=== PATIENT | female | born 1985 | race Caucasian/White ===

== ENCOUNTER 2022-08-15 11:49 | Emergency (ER) | payer BC, SELFPAY ==
[2022-08-15 12:05] VITALS: BP 124/82; PULSE 74; RESP 18; TEMP 36.6; O2SAT 98; BMI 24.4
--- NOTE | 2022-08-15 12:18 | ED_ITS ---
[facility] - General Adult General Time Seen by Provider: 12:18 Date Seen: 08/15/22 Chief complaint: Difficulty Swallowing Stated complaint: something stuck in throat Time Seen by Provider: 08/15/22 11:50 Source: patient Mode of arrival: ambulatory Limitations: no limitations History of Present Illness HPI narrative: Patient is a pleasant 37 year white female who feels some things ?irritated in her throat, with a feeling of saliva stuck around her throat. She is able to swallow her own saliva, able to swallow it has been going on for a couple of months she went to Urgent Care and they were not able to help her. She is does not recall eating anything that stuck in her throat, reports that she is very healthy. Does take venlafaxine and trazodone. These have been stable medications. No fevers, chills, COVID symptoms, leg swelling or edema. Related Data Home Medications Medication Instructions Recorded Confirmed trazodone 100 mg tablet 200 mg PO .hs 08/08/22 08/15/22 Previous Rx's Medication Instructions Recorded venlafaxine 150 mg See Rx Instructions .Route 06/28/22 capsule,extended release 24 hr .COMPLEX #90 caps Allergies Allergy/AdvReac Type Severity Reaction Status Date / Time No Known Drug Allergies Allergy Verified 08/15/22 13:33 Review of Systems Narrative: Negative other than reported in the [facility] Social History Smoking Status: Smoker, status unknown Do you use any of these nicotine containing products: None Second hand tobacco smoke exposure: No How often do you have a drink containing alcohol: 2-4 times a month How many standard drinks containing alcohol do you have on a typical day: 1 or 2 How often do you have six or more drinks on one occasion: Monthly AUDIT-C Alcohol total score: 4 Non-prescribed substance use: denies use Little interest or pleasure in doing things: several days Feeling down, depressed, or hopeless: several days service: No Exam Narrative: Exam Narrative: Objective O2 sat is 90% on room air HEENT is unremarkable, throat is clear, neck supple Const: Vital Signs, click to edit/add: Vital Signs - 24 hr 08/15/22 12:05 Temperature 98 F Pulse Rate [Pulse Oximeter] 74 Respiratory Rate 18 Blood Pressure [Ri ght Upper Arm] 124/82 Pulse Oximetry 98 Oxygen Delivery Me thod Room Air Course Vital Signs Vital signs: Initial Vital Signs Temperature 98 F 08/15/22 12:05 Temperature Source Temporal Artery Scan 08/15/22 12:05 Pulse Rate 74 08/15/22 12:05 Pulse Rhythm 08/15/22 12:05 Respiratory Rate 18 08/15/22 12:05 Blood Pressure 124/82 08/15/22 12:05 Blood Pressure Mean 96 08/15/22 12:05 Blood Pressure Position Supine 08/15/22 12:05 Pulse Oximetry 98 08/15/22 12:05 Oxygen Delivery Method 08/15/22 12:05 Vital Signs Temperature 98 F 08/15/22 12:05 Pulse Rate 74 08/15/22 12:05 Respiratory Rate 18 08/15/22 12:05 Blood Pressure 124/82 08/15/22 12:05 Pulse Oximetry 98 08/15/22 12:05 Oxygen Delivery Method 08/15/22 12:05 Temperature 98 F 08/15/22 12:05 Pulse Rate 74 08/15/22 12:05 Respiratory Rate 18 08/15/22 12:05 Blood Pressure 124/82 08/15/22 12:05 Pulse Oximetry 98 08/15/22 12:05 Oxygen Delivery Method 08/15/22 12:05 Medical Decision Making MDM Narrative Medical decision making narrative: Patient has a several month history of saliva or postnasal drainage occurring and feeling like she is getting something caught in her throat. She is able to swallow now. Does appear to have an obstruction. Has no shortness of breath. I recommend an ENT scope evaluation, will try and set this up with Dr. Vance Garcia in as soon as possible. Addendum: Dr. looney kindly will see the patient this afternoon at 1:30 a.m. in like the clinic. I think she is stable to be discharged given her symptoms been present for a couple of months. Discharge Plan Discharge Clinical Impression: Throat irritation Patient Disposition: Home, Self-Care Condition: Stable Additional Instructions: ENT consult recommended, really need to look at the throat with a telescope. No obvious findings on clinical exam today. Soft light diet until ENT consult. ENT consult today in [facility] at 1:[address] Vance Garcia in Activity Level: No Restrictions Discharge Diet: Regular Prescriptions: No Action trazodone 100 mg tablet 200 mg PO .hs Label Comments: TAKE TWO TABLETS BY MOUTH NIGHTLY AT BEDTIME venlafaxine 150 mg capsule,extended release 24hr See Rx Instructions .ROUTE .COMPLEX Qty: 90 1RF Dose Instruction: TAKE 1 CAPSULE BY MOUTH ONE TIME DAILY Rx Instructions: TAKE 1 CAPSULE BY MOUTH ONE TIME DAILY Follow Up/Referrals: Parag Reese PA-C [Primary Care Provider] - Stand Alone Forms: [employer] Info Instructions
== END 2022-08-15 12:42 | disposition home or self-care (01) ==
LOC: ED 12:34
PROVIDERS: Emergency Provider Family Medicine; PCP Physician Assistant Medical
DX: R13.10 Dysphagia, unspecified (principal)
CPT/HCPCS: 99282; 99283

== ENCOUNTER 2022-09-18 19:14 | Outpatient (CLI) | payer BC, SELFPAY ==
--- NOTE | 2022-09-25 09:02 | W.PM.SLEEP ---
Sleep Study Details Details Interpreting Provider: Tyler Pham MD Date of Sleep Study: 09/18/22 Sleep Study Details: STUDY TYPE:? Home ? BMI:? 24.4 ORDERING PROVIDER:? Isaiah INDICATION:? Concerns about sleep apnea ? SLEEP SUMMARY:? Monitor time 433 minutes RESPIRATORY SUMMARY:? AHI 1.5, supine AHI 0.8, right lateral AHI 2.4 Low oxygen 88 Snoring 0% PERIODIC LIMB MOVEMENTS OF SLEEP:? Not recorded CARDIAC:? Range 66 -106, mean 80 IMPRESSION:? This study is not show significant evidence of obstructive sleep apnea. RECOMMENDATION: If sleep disorder is strongly suspected, an in-lab study should be ordered possibly with an MSLT to follow
== END 2022-09-18 19:15 | disposition home or self-care (01) ==
PROVIDERS: PCP Physician Assistant Medical; Visit Provider Otolaryngology
DX: G47.10 Hypersomnia, unspecified (principal)
CPT/HCPCS: 95806

== ENCOUNTER 2022-12-27 16:12 | Outpatient (CLI) | payer BC, SELFPAY ==
[2022-12-27 21:58] LABS: HCG Qualitative Serum* Negative (Negative)
[2022-12-27 22:06] LABS: Cholesterol* 202 mg/dL (90-199); HDL Cholesterol* 59 mg/dL (>=50); LDL Cholesterol Calculated 121 mg/dL (<100); Triglycerides* 112 mg/dL (40-149)
[2022-12-27 22:35] LABS: TSH With Reflex to FT4* 0.033 uIU/mL (0.270-4.200)
== END 2022-12-27 16:13 | disposition home or self-care (01) ==
PROVIDERS: PCP Physician Assistant Medical; Visit Provider Registered Nurse
DX: Z01.419 Encounter for gynecological examination (general) (routine) without abnormal findings (principal); R00.2 Palpitations; N64.4 Mastodynia; E03.9 Hypothyroidism, unspecified; Z13.1 Encounter for screening for diabetes mellitus; Z13.6 Encounter for screening for cardiovascular disorders
CPT/HCPCS: 80061; 84439; 84443; 84703

== ENCOUNTER 2023-03-14 08:52 | Outpatient (CLI) | payer BC, SELFPAY | END 2023-03-14 08:53 | disposition home or self-care (01) | LOC: NFLDREF 03-15 14:11 | PROVIDERS: PCP Physician Assistant Medical; Referring Provider Physician Assistant Medical; Visit Provider Family Medicine | DX: Z01.818 Encounter for other preprocedural examination (principal); B00.1 Herpesviral vesicular dermatitis; R87.613 High grade squamous intraepithelial lesion on cytologic smear of cervix (HGSIL) | CPT/HCPCS: 87086 ==

== ENCOUNTER 2023-03-19 08:16 | Day surgery (SDC) | payer BC, SELFPAY ==
[2023-03-19] MEDS: LACTATED RINGERS 1000 ML 1,000 ML 100 ML IV (08:05)
[2023-03-19 08:37] VITALS: BMI 22.6
[2023-03-19 08:52] LABS: Ur HCG Qualitative* Negative (Negative)
[2023-03-19 08:53] VITALS: BP 111/67; PULSE 78; RESP 18; TEMP 36.6; O2SAT 100
[2023-03-19] MEDS: SODIUM CHLORIDE 0.9 % (FLUSH) 10 ML SYRINGE IVF (08:55)
--- NOTE | 2023-03-19 09:22 | W.ANESCHARGE ---
Anesthesia Charges Start Date/Time Anesthesia Start Date: 03/19/23 Anesthesia Start Time: 09:56 Stop Date/Time Anesthesia Stop Date: 03/19/23 Anesthesia Stop Time: 10:40
[2023-03-19] MEDS: FERRIC SUBSULFATE 8 GM VIAL 1 VIAL TOPICAL (10:15)
--- NOTE | 2023-03-19 10:38 | W.PM.GYNPROC ---
Procedure Note Date Seen: 03/19/23 Procedure Details: PREOPERATIVE DIAGNOSIS: ADELIA 2-3 on recent colposcopy Mirena IUD in place, desires another placement POSTOPERATIVE DIAGNOSIS: Same PROCEDURE: Removal of Mirena IUD Loop electrosurgical excision procedure Insertion of Mirena IUD SURGEON: Olive Haro MD ANESTHESIA: Monitored anesthesia care, paracervical block with approximately 20 mL 1% lidocaine with dilute epinephrine IV FLUIDS: 700 mL crystalloid EBL: Less than 5 mL FINDINGS: 1. Upon pelvic exam under anesthesia, vagina and cervix were normal in appearance. IUD string was noted at the external cervical os. Uterus was mobile, anteverted, and of normal size and texture. There were no palpable adnexal masses. With Lugol's applied to the cervix, the transformation zone appeared small. 2. Uterus sounded to 6 cm. COMPLICATIONS: None PROCEDURE IN DETAIL: Patient was taken to the operating room with IV running. She was positioned in dorsal lithotomy position with her legs fully supported in Yellofin stirrups. Monitored anesthesia care was established. Insulated Graves speculum is inserted. Cervix is easily visualized. The IUD string was grasped with ring forcep and removed with gentle traction. The area is initially cleansed with Lugol solution, delineating the squamocolumnar junction. Cervix was then injected in multiple positions with 1% lidocaine with epinephrine. A total of 20 mL of 1% lidocaine with epinephrine was used. The 10 x 20 mm LEEP loop was then used to perform the biopsy at a setting of 70 blend, encompassing the external os and transformation zone. Endocervical curettage was performed above the LEEP bed. The LEEP bed was then cauterized with ball cautery until hemostasis was achieved. Tenaculum was attached to the anterior lip of the cervix, outside the LEEP bed. Cervix is dilated with size 4 Hegar dilator. Uterus sounds to 6 cm. The IUD is loaded into the insertion tube, inserted to the sounded depth, and the IUD is deployed. Insertion tube was removed. Strings are trimmed to 3 cm. The tenaculum was removed, and bleeding was noted from each puncture site along the anterior lip the cervix. This was treated with monopolar cautery. Monsel solution was then applied to the LEEP bed. The speculum was removed. A stitch was placed at the 12 o'clock position of the LEEP specimen. Patient tolerated procedure well and was taken to recovery area in stable condition.
[2023-03-19 10:40] VITALS: BP 101/56; PULSE 99; RESP 16; TEMP 36.4; O2SAT 97
--- NOTE | 2023-03-19 10:41 | W.ANESCHARGE ---
Anesthesia Charges Start Date/Time Anesthesia Start Date: 03/19/23 Anesthesia Start Time: 09:56 Stop Date/Time Anesthesia Stop Date: 03/19/23 Anesthesia Stop Time: 10:40
[2023-03-19 10:45] VITALS: BP 94/53; PULSE 83; RESP 16; O2SAT 98
[2023-03-19 11:00] VITALS: BP 98/54; PULSE 83; RESP 16; O2SAT 98
[2023-03-19 11:15] VITALS: BP 92/61; PULSE 75; RESP 16; O2SAT 98
[2023-03-19 11:30] VITALS: BP 91/64; PULSE 72; RESP 16; TEMP 36.7; O2SAT 98
== END 2023-03-19 11:53 | disposition home or self-care (01) ==
PROVIDERS: Obstetrics & Gynecology; PCP Family Medicine; Visit Provider Obstetrics & Gynecology
PROC: 0UBC7ZZ Excision of Cervix, Via Natural or Artificial Opening (ICD-10-PCS; CPT 57522; principal; 2023-03-19 09:45)
DX: D06.7 Carcinoma in situ of other parts of cervix (principal); Z30.433 Encounter for removal and reinsertion of intrauterine contraceptive device
CPT/HCPCS: 57522; 58300; 58301; 00940; 81025; 88305; 88307; 88342; J1885; J2250; J2405; J2704; J3010; J7120; J7298

== ENCOUNTER 2024-06-29 14:00 | Outpatient (CLI) | payer BC, SELFPAY | END 2024-06-29 14:01 | disposition home or self-care (01) | PROVIDERS: PCP Family Medicine; Visit Provider Obstetrics & Gynecology | DX: Z01.419 Encounter for gynecological examination (general) (routine) without abnormal findings (principal); E03.9 Hypothyroidism, unspecified | CPT/HCPCS: 84439; 84443; 84481 ==

== ENCOUNTER 2025-01-04 15:45 | Outpatient (CLI) | payer BC, SELFPAY | END 2025-01-04 15:46 | disposition home or self-care (01) | LOC: NFLDREF 01-06 00:43 | PROVIDERS: PCP Family Medicine; Referring Provider Family Medicine; Visit Provider Family Medicine | DX: E03.9 Hypothyroidism, unspecified (principal); Z01.818 Encounter for other preprocedural examination; Z79.899 Other long term (current) drug therapy | CPT/HCPCS: 84439; 84443; 86376 ==

== ENCOUNTER 2025-05-06 21:27 | Emergency (ER) | payer BC, SELFPAY ==
--- OUTSIDE RECORDS SUMMARY | 2024-12-09 10:30 | XMS_ITS ---
Author Organization [facility] e Address [address] [place] [address] Care Team Providers Care Assistant Analyst Name Role Phone None, No PCP Primary Care Provider Dee Gonzalez [phone] REASON FOR VISIT HRT Consult Encounters Encounter Location Date Provider Diagnosis [facility] [address] [place] [address] 12/09/2024 Dee Dang Plan Of Treatment No Information Progress Notes * Yarelis KHANNAOB:1984 (39 yo F)Acc No.[id number]:12/09/2024 Patient: Sunita ANDRADE Provider: Vane Dang DNP :1985 A ge:39 Y S ex:Female Date:12/09/2024 Address:[address] [id number] Pcp:No PCP None Subjective: * Chief Complaints: * 1 . HRT Consult. * Medical History: Objective: * Vitals: Assessment: Plan: * Treatment: * Images: Billing Information: * Visit Code: * Procedure Codes: * Electronic signature of Any Dang CNP on 05/06/2025 at 09:29 PM CDT Sign off status: Pending * Provider: Vane Dang DNP Date: 12/09/2024 Generated for Kan felton/oClette/Wilfrid on: 0 05/06/2025 09:29 PM CDT
--- OUTSIDE RECORDS SUMMARY | 2024-12-09 11:00 | XMS_ITS ---
Author Organization [facility] e Address [address] [place] [address] Care Team Providers Care Grinder Mill Operator Name Role Phone None, No PCP Primary Care Provider Dee Gonzalez [phone] REASON FOR VISIT HRT Consult Encounters Encounter Location Date Provider Diagnosis [address] [place] [phone] 12/09/2024 Dee Dang Plan Of Treatment No Information Progress Notes * Yarelis KHANNAOB:1984 (39 yo F)Acc No.[id number]:12/09/2024 Patient: Sunita ANDRADE Provider: Vane Dang DNP :1985 A ge:39 Y S ex:Female Date:12/09/2024 Address:[address] [id number] Pcp:No PCP None Subjective: * Chief Complaints: * 1 . HRT Consult. * Medical History: Objective: * Vitals: Assessment: Plan: * Treatment: Care Plan: * Problems: * Images: Billing Information: * Visit Code: * Procedure Codes: * Electronic signature of Any Dang CNP on 05/06/2025 at 09:29 PM CDT Sign off status: Pending * Provider: Vane Dang DNP Date: 12/09/2024 Generated for Kan felton/Colette/Wilfrid on: 0 05/06/2025 09:29 PM CDT
--- OUTSIDE RECORDS SUMMARY | 2024-12-16 03:30 | XMS_ITS ---
Author Organization [place] [employer] [facility] e Address [address] [place] [address] Care Team Providers Care Pond Sawyer Name Role Phone None, No PCP Primary Care Provider Dee Gonzalez [phone] REASON FOR VISIT HRT lab f/u Encounters Encounter Location Date Provider Diagnosis [facility] [address] [place] [address] 12/16/2024 Dee Dang Plan Of Treatment No Information Progress Notes * Yarelis KHANNAOB:1984 (39 yo F)Acc No.[id number]:12/16/2024 Patient: Sunita ANDRADE Provider: Vane Dang DNP :1985 A ge:39 Y S ex:Female Date:12/16/2024 Address:[address] [id number] Pcp:No PCP None Subjective: * Chief Complaints: * 1 . HRT lab f/u. * Medical History: Objective: * Vitals: Assessment: Plan: * Treatment: * Images: Billing Information: * Visit Code: * Procedure Codes: * Electronic signature of Any Dang CNP on 05/06/2025 at 09:29 PM CDT Sign off status: Pending * Provider: Vane Dang DNP Date: 0 12/16/2024 Generated for Kan felton/Colette/Wilfrid on: 0 05/06/2025 09:29 PM CDT
--- OUTSIDE RECORDS SUMMARY | 2025-05-06 21:29 | XMS_ITS | Patient Health Record ---
Author Organization [employer] e Address [address] [place] [address] Care Team Providers Care Rfid Technician Name Role Phone None, No PCP Primary Care Provider Dee Gonzalez [phone] Reason For Referral No Information Plan Of Treatment No Information
[2025-05-06 21:43] VITALS: BP 133/83; PULSE 98; RESP 20; TEMP 37.1; O2SAT 99; BMI 24.0
--- NOTE | 2025-05-06 22:03 | ED_ITS ---
HPI - General Adult General Chief complaint: Neck Injury/Pain Stated complaint: Neck pain Time Seen by Provider: 05/06/25 21:52 History of Present Illness HPI narrative: Patient is a 39-year-old woman who has had 3 level fusion of her cervical spine. This was approximately 3 months ago. Over the last week she has had progressive pain in the left side of her neck into her shoulder and posterior arm. 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 She was seen by her neurosurgeon given limited number of oxycodone which is not helping at 5 mg. She has had no bowel or bladder symptoms no REAM CUTTER symptoms no nausea no vomiting no fevers no chills. She has had no seizure activity. Related Data Home Medications ?Medication ?Instructions ?Recorded ?Confirmed thyroid (pork) 15 mg tablet (TELECOMMUNICATIONS FIELD TECHNICIAN 60 mg PO QDAY 12/27/22 12/18/24 Thyroid) methocarbamol 500 mg tablet 500 mg PO 3XD PRN 05/06/25 05/06/25 oxycodone 5 mg tablet 5 mg PO Q4-6H PRN pain 05/0605/06/25 Previous Rx's ?Medication ?Instructions ?Recorded venlafaxine 225 mg tablet,extended 225 mg PO QDAY #90 tabs 07/07/24 release 24 hr trazodone 100 mg tablet 200 mg (2 x 100 mg) PO QPM # 180 04/13/25 tabs Allergies Allergy/AdvReac Type Severity Reaction Status Date / Time No Known Drug Allergies Allergy Verified 05/06/25 21:46 Review of Systems Status of ROS: Reports: 10 or more systems reviewed and unremarkable except as noted in History and below [facility] Medical History Nicotine dependence (10/23/10) ?F17.200 - Nicotine dependence, unspecified, uncomplicated (ICD-10) History of delivery ?Z87.51 - Personal history of pre-term labor (ICD-10) History of abnormal cervical Papanicolaou smear (2010) ?Z87.42 - Personal history of other diseases of the female genital tract (ICD-10) Genital herpes simplex (03/27/13) ?A60.00 - Herpesviral infection of urogenital system, unspecified (ICD-10) Gastroesophageal reflux disease ?K21.9 - Gastro-esophageal reflux disease without esophagitis (ICD-10) Surgical History History of plastic surgery (2013) ?Z98.890 - Other specified postprocedural states (ICD-10) History of loop electrical excision procedure (LEEP) (08/19/12) ?Z98.890 - Other specified postprocedural states (ICD-10) History of colposcopy (2010) ?Z98.890 - Other specified postprocedural states (ICD-10) History of benign breast biopsy ?Z98.890 - Other specified postprocedural states (ICD-10) Family History Father Alcohol dependence High blood pressure Myeloma Mother Alcohol dependence COPD (chronic obstructive pulmonary disease) Mental health disorder Family/Other Alcohol dependence Colon cancer Aunt Breast cancer Colon cancer Jaw cancer Sister Depression Brother High blood pressure Other High cholesterol Social History What is your current living situation?: I presently have a place to live Problems where you live: no known problems In the past 12 months, utilities in danger of being shut off: no In past 12 months, lack of transportation kept you from medical appts, meetings, work, or getting things needed for daily living: no In the past 12 mos, have been you worried that your food would run out before you had money to buy more?: never true In the past 12 mos, the food you bought just didn't last and you didn't have money to buy more?: never true Smoking Status: Never smoker Do you use any of these nicotine containing products: None Second hand tobacco smoke exposure: No How often do you have a drink containing alcohol: monthly or less Alcohol type: wine How many standard drinks containing alcohol do you have on a typical day: 1 or 2 How often do you have six or more drinks on one occasion: Never AUDIT-C Alcohol total score: 1 Non-prescribed substance use: denies use Caffeine: Yes (caffeine supplement daily spark) How often does anyone, including family, friends and others, physically hurt you : never How often does anyone, including family, friends and others, insult or talk down to you: rarely How often does anyone, including family, friends and others, threaten you with harm: never How often does anyone, including family, friends and others, scream or curse at you: rarely Are you using contraception or practicing any form of control: Yes service: No Health Related Social Needs: Other personal risk factors, not elsewhere classified (Z91.89) Exam Narrative: Exam Narrative: EXAM GENERAL: Patient appears comfortable and well. EYES: No scleral icterus. LYMPH: No supraclavicular or cervical lymphadenopathy. SKIN: Visible skin seen during exam normal or with benign process only. EXT: No dependent lower extremity pedal edema. HEART: Regular rate and rhythm with no murmurs, rubs, or gallops. LUNGS: Clear to auscultation bilaterally with no crackles or wheezes. ABD: Soft, non tender, non distended. PSYCH: Good eye contact, speech is not pressured. Neurologic cranial nerves 2-12 grossly intact no focal defects. Const: Vital Signs, click to edit/add: Vital Signs - 24 hr 05/06/25 21:43 Temperature 98.8 F Pulse Rate [Right Pulse Oximeter] 98 Respiratory Rate 20 Blood Pressure [Ri ght Upper Arm] 133/83 Pulse Oximetry 99 Oxygen Delivery Me thod Room Air Course Course ED Course: Patient seen and examined. Vital Signs Vital signs: Initial Vital Signs Temperature 98.8 F 05/06/25 21:43 Temperature Source Temporal Artery Scan 05/06/25 21:43 Pulse Rate 98 05/06/25 21:43 Respiratory Rate 20 05/06/25 21:43 Blood Pressure 133/83 05/06/25 21:43 Blood Pressure Mean 99 05/06/25 21:43 Blood Pressure Position Sitting 05/06/25 21:43 Pulse Oximetry 99 05/06/25 21:43 Oxygen Delivery Method Room Air 05/06/25 21:43 Vital Signs Temperature 98.8 F 05/06/25 21:43 Pulse Rate 98 05/06/25 21:43 Respiratory Rate 20 05/06/25 21:43 Blood Pressure 133/83 05/06/25 21:43 Pulse Oximetry 99 05/06/25 21:43 Oxygen Delivery Method Room Air 05/06/25 21:43 Temperature 98.8 F 05/06/25 21:43 Pulse Rate 98 05/06/25 21:43 Respiratory Rate 20 05/06/25 21:43 Blood Pressure 133/83 05/06/25 21:43 Pulse Oximetry 99 05/06/25 21:43 Oxygen Delivery Method Room Air 05/06/25 21:43 Medical Decision Making MDM Narrative Medical decision making narrative: Patient presents with radicular symptoms of cervical disc disease. I do think that we should continue oxycodone in the short term if she does appear to be fairly miserable. I did increase her dose 10 mg every 4 hours as needed. I gave her 30 mg of Toradol. I did recommend close outpatient follow-up spinal surgery. Will make no other recommendations and have her keep her outpatient follow-up. Discharge Plan Discharge Clinical Impression: Cervical radiculopathy Patient Disposition: Home, Self-Care Condition: Stable Instructions: Cervical Radiculopathy (ED) Additional Instructions: And increase oxycodone as directed. Continue current care. Follow-up with your surgeon as discussed. Activity Level: No Restrictions Discharge Diet: Regular Prescriptions: No Action thyroid (pork) [TELECOMMUNICATIONS FIELD TECHNICIAN Thyroid] 15 mg tablet 60 mg PO QDAY venlafaxine 225 mg tablet extended release 24hr 225 mg PO QDAY Qty: 90 3RF methocarbamol 500 mg tablet 500 mg PO 3XD PRN oxycodone 5 mg tablet 5 mg PO Q4-6H PRN (Reason: pain) trazodone 100 mg tablet 200 mg PO QPM Qty: 180 0RF Follow Up/Referrals: Marybeth Neol MD [Primary Care Provider, Family Practice] Stand Alone Forms: [employer] Info Instructions
[2025-05-06 22:14] VITALS: TEMP 37.1
[2025-05-06] MEDS: KETOROLAC 30 MG/ML inj IM (22:14)
== END 2025-05-06 22:16 | disposition home or self-care (01) ==
LOC: ED 22:13
PROVIDERS: Emergency Provider Internal Medicine; PCP Family Medicine
DX: M54.12 Radiculopathy, cervical region (principal)
CPT/HCPCS: 96372; 99283; 99284; J1885

== ENCOUNTER 2025-09-07 09:41 | Outpatient (CLI) | payer BC, SELFPAY ==
[2025-09-09 06:07] LABS: HPV Source Cervix
[2025-09-14 10:29] LABS: Pap Test Digital Imaging Done; Pap Test Reviewed by Pathologi Done
== END 2025-09-07 09:42 | disposition home or self-care (01) ==
PROVIDERS: PCP Family Medicine; Visit Provider Obstetrics & Gynecology
DX: Z12.4 Encounter for screening for malignant neoplasm of cervix (principal)
CPT/HCPCS: 87624; 87625; 88141; 88142; 88175